=== PATIENT | female | born 1945 | race Caucasian/White ===

== ENCOUNTER 2021-12-27 10:03 | Outpatient (CLI) | payer MEDICARE | END 2021-12-27 10:04 | disposition home or self-care (01) | LOC: CSHMAMMO 10:03 | PROVIDERS: ATTEND Internal Medicine | DX: Z12.31 Encounter for screening mammogram for malignant neoplasm of breast (principal); Z98.890 Other specified postprocedural states; Z85.3 Personal history of malignant neoplasm of breast | CPT/HCPCS: 77063; 77067 ==